=== PATIENT | female | born 1945 | race Caucasian/White ===

== ENCOUNTER 2021-04-07 12:03 | Inpatient (IN) | payer OTHER, MEDICAID ==
[~2021-04-07] VITALS: Ht 162.6 cm; Wt 95.5 kg
--- NOTE | ~2021-04-07 | D ---
[facility] [place] [address] DISCHARGE SUMMARY Name: SANGEETHA HOWARD Room #: 518B-B [facility] M.R.#: [id number] Admission: 04/07/21 Attend Phys: Brady Blancas DO Discharge: 04/11/21 Date of : 43 Report #: [id number] THIS REPORT FOR: cc: FAM - Family physician unknown FAM - Family physician unknown Brady Blancas DO ~ DATE OF SERVICE: 04/11/2021 INPATIENT PSYCHIATRIC DISCHARGE SUMMARY ATTENDING PSYCHIATRIST: Brady Blancas DO RETAIL AGENT: Michael Ferguson MD DISCHARGE DIAGNOSES: Bipolar 1 disorder, most recent episode; depressed, improved; borderline personality traits. MEDICAL COMORBIDITIES: Include obesity, hyperlipidemia, diabetes mellitus, requiring insulin; hypothyroidism, hypertension. The patient is discharging to her home. She does have a part-time in-home caregiver. DISCHARGE MEDICATIONS: Were sent to the [facility] in [place] is as follows: Tramadol 50 mg oral b.i.d. p.r.n. for pain, lamotrigine 300 mg oral at bedtime for mood stabilization and seizure prevention, atorvastatin 1 tablet oral daily for hyperlipidemia, [place]-3 fish oil 1 capsule oral twice daily 1000 mg for hyperlipidemia, levothyroxine 137 mcg oral daily for hypothyroidism, methocarbamol 500 mg oral 3 times a day for muscle relaxation, magnesium oxide 400 mg oral daily for supplementation, vitamin B12 500 mcg oral daily for supplementation, furosemide 20 mg oral tablet daily for hypertension, fenofibrate 160 mg oral daily, omeprazole 1 capsule oral daily 20 mg for GERD, vitamin D3 2000 international units oral daily for supplementation, Requip 1 tablet oral in a.m. and the evening, 2 tablets at bedtime; probiotic 1 tablet oral daily, gabapentin 600 mg oral 3 times a day for neuropathy, Lexapro 5 mg oral daily for depression, insulin glargine 60 units subQ daily at 0900 hours, at least daily blood sugars. The patient uses a walker, 1800-calorie diabetic diet. She was given crisis suicide hotline information. Return to ER for chest pain, fever greater than 101, shortness of breath, increased swelling, edema and trouble breathing. No SI, HI. LABORATORY DATA: Significant laboratories this admission, hematology: White count 6.1, H and H of 14.5 and 43.3, platelet count 179. Chemistries this admission: Sodium 141, potassium 4.0, chloride 105, bicarbonate 26, anion gap 10, BUN 18, creatinine 0.8, estimated GFR 70, average glucose 177. A1c high at 7.8, calcium 9.0, AST 30, ALT 30, alkaline phosphatase 92, total protein 7.1, albumin 3.5, triglycerides 375, total cholesterol 225, LDL 124, HDL 26, which is low. TSH slightly high at 6.544. COVID-19 serology was not detected on the or for this patient. [address] [address] DISCHARGE SUMMARY Name: SANGEETHA HOWARD Room #: 518B[facility]B [facility] M.R.#: [id number] Admission: 04/07/21 Attend Phys: Brady Blancas, DO Discharge: 04/11/21 Date of : 43 Report #: [id number] REASON FOR ADMISSION: A 75-year-old female referred from [facility] after suicidal statements, suicidal ideation with overdose on insulin. She had recent overdose on insulin on 03/24 and 03/25. The patient is in wraparound services with [facility]. HOSPITAL COURSE: The patient was admitted to Geriatric Psychiatry Unit. Regarding her medication regimen, she had been recently started on Prozac, I felt that was not in her best interest. Given the drug interaction problem, probably to resume medication, so I started her on Lexapro 5 mg oral daily. The patient tolerated it throughout the hospitalization well, sleep improved. She interacted and participated in groups. We had hoped to get her in a PHP or IOP program through [facility] in [place]. Unfortunately, they do not have this. Her in-home caregiver company was coming around 20 hours a week; therefore, we are going to increase this to 40 hours a week. We communicated during the hospitalization with her daughter, Erendira, who is familiar with previous incident such as this. She remained supportive. The patient was counseled on coping skills, which she will continue to work on. She did have some obsessional thinking about exposing her grandchildren to COVID, which was not found a definite reality. PHYSICAL EXAMINATION: VITAL SIGNS: Today on day of discharge are as follows: Temperature 36.6, pulse 77, respirations 17, BP 115/63, O2 sat 93%. BMI of 36.1. Weight of 95.41 kilos. MUSCULOSKELETAL: Upright with walker, well dressed. MENTAL STATUS EXAMINATION: Well-developed female, appearing stated age. Attention intact. Concentration was intact. Speech normal in rate, tone. Thought process: Linear and goal directed. Thought content: Focused on the present and discharge. Mood and affect euthymic, okay, congruent, fair range. Memory not formally tested. Insight and judgment fair. Fund of knowledge at least average. Prognosis for this patient is guarded given limited coping skills, history of previous suicidal attempts, gestures. She will need to be assertive about engaging in therapy and activities to improve her chances of success. By: [id number] Brady Blancas, /nt
[2021-04-07] MEDS ORDERED: TRAMADOL 50 MG50 MG PO (16:52)
[2021-04-07] MEDS ORDERED: ACETAMINOPHEN650 M2 PO (16:52)
[2021-04-07] MEDS ORDERED: FLUOXETINE DR90 MG PO (16:53)
[2021-04-07] MEDS ORDERED: LAMICTAL100 MG PO (16:54)
[2021-04-07] MEDS ORDERED: PRAVACHOL 20 MG20 M1 PO (16:54)
[2021-04-07] MEDS ORDERED: VITAMIN B-121000 MC2 SUBLING (16:55)
[2021-04-07] MEDS ORDERED: FISH OIL 1,001000 M3 PO (17:01)
[2021-04-07] MEDS ORDERED: D3 DOTS50 MCG PO (17:02)
[2021-04-07] MEDS ORDERED: LEVOTHYROXINE137 MC1 PO (17:02)
[2021-04-07] MEDS ORDERED: METHOCARBAMOL500 M2 PO (17:03)
[2021-04-07] MEDS ORDERED: MAG-OXIDE400 MG PO (17:04)
[2021-04-07] MEDS ORDERED: REQUIP 0.25 M0.25 M1 PO (17:04)
[2021-04-07] MEDS ORDERED: B-12500 MCG PO (17:06)
[2021-04-07] MEDS ORDERED: CLARITIN10 M3 PO (17:06)
[2021-04-07] MEDS ORDERED: [UNRECOGNIZED DRUG - OTHER] PO (17:06)
[2021-04-07] MEDS ORDERED: GRALISE600 MG PO (17:07)
[2021-04-07] MEDS ORDERED: FUROSEMIDE 20 M20 MG PO (17:07)
[2021-04-07] MEDS ORDERED: LEVEMIR FL100 UNIT/2 SUBQ (17:08)
[2021-04-07] MEDS ORDERED: INSULIN AS100 UNIT/1 SUBQ (17:09)
[2021-04-07] MEDS ORDERED: ADMELOG100 UNIT/1 SUBQ (17:11)
[2021-04-07] MEDS ORDERED: HUMALOG100 UNIT/1 SUBQ (17:11)
[2021-04-07] MEDS ORDERED: FARXIGA5 MG PO (17:14)
[2021-04-07] MEDS ORDERED: TRESIBA FL100 UNIT/1 SUBQ (17:14)
[2021-04-07] MEDS ORDERED: FENOFIBRATE160 MG PO (17:14)
[2021-04-07] MEDS ORDERED: OMEPRAZOLE 20 M20 M1 PO (17:15)
[2021-04-08] MEDS ORDERED: VITAMIN D31250 MCG PO (02:10)
[2021-04-08] MEDS ORDERED: REQUIP 1 MG TABL1 M1 PO ×2 (02:12)
[2021-04-08] MEDS ORDERED: RISPERDAL 1 MG T1 MG PO (02:13)
[2021-04-08] MEDS ORDERED: PROBIOTIC1 EAC7 PO (02:14)
[2021-04-08] MEDS ORDERED: TRAMADOL 50 MG50 MG PO (02:15)
--- NOTE | 2021-04-08 02:30 | NUR ---
04/07/21 0510 PATIENT ADMITTED TO THE UNIT FROM ER VIA WHEELCHAIR. PATIENT IS AAOX4 AND FOLLOWS COMMANDS. AMBULATORY BUT NEEDS A WALKER. DENIES PAIN OR NEEDS AT THIS TIME. STATES THAT SHE HAS BEEN FEELING DEPRESSED AND WANTED TO OD ON HER INSULIN. PATIENT PRESENTS WITHDRAWN AND DEPRESSION. STATES THAT SHE NEEDS SOMETHING FOR PAIN AND ANXIETY. HAS BEEN TREATED AT LEAST TWICE IN THE PAST 6 MONTHS FOR SI. VITAL SIGNS ARE STABLE AND BLOOD GLUCOSE IS 183. NO BREAKDOWN IN SKIN NOTED. ORIENTED PATIENT TO HER ROOM. PT TOLERATES PO MEDICATIONS WITH NO ISSUES. YELLOW SOCKS APPLIED. ID BANDS APPLIED. MRI ASSISTANT KLAIN RODRIGUEZ AT BEDSIDE A FEW MINUTES AFTER PATIENT ARRIVAL. NOTIFIED DR. GARCÍA OF PATIENT ARRIVAL TO UNIT. PATIENT SIGNS VOLUNTARY CONSENTS. WILL CONTINUE TO MONITOR FOR CHANGES IN PATIENT STATUS.
[2021-04-08 06:30] LABS: HEMATOCRIT 43.3 % (37.0-47.0); HEMOGLOBIN 14.5 gm/dL (12.0-15.0); MCH 30.5 pg (26.0-34.0); MCHC 33.5 g/dL (28.0-37.0); MCV 90.9 fL (80.0-100.0); RBC 4.76 mil/uL (4.20-5.00); RDW 14.6 % (10.5-14.5); WBC 6.1 thou/uL (4.0-11.0)
[2021-04-08 06:55] LABS: ALBUMIN 3.5 g/dL (3.4-5.0); ANION GAP 10 mmol/L (7-16); BUN 18 mg/dL (7-18); CHLORIDE 105 mmol/L (98-107); CHOLESTEROL 225 mg/dL (<200); CO2 26 mmol/L (21-32); CREATININE 0.8 mg/dL (0.6-1.0); GLUCOSE 176 mg/dL (74-106); HDL CHOLESTEROL 26 mg/dL (>40); LDL CHOLESTEROL 124 mg/dL (<100); SGOT 30 U/L (15-37); SGPT 30 U/L (30-65); SODIUM 141 mmol/L (136-145); TC:HDL 8.7 Ratio (Not establshd); TOTAL BILIRUBIN 0.6 mg/dL (0.2-1.0); TOTAL PROTEIN 7.1 g/dL (6.4-8.2); TRIGLYCERIDE 375 mg/dL (<150); VLDL 75 mg/dL (<40)
[2021-04-08] MEDS ORDERED: PROZAC 10 MG CA10 MG PO (08:42)
[2021-04-08] MEDS ORDERED: NEURONTIN 300M300 M2 PO ×2 (08:44)
[2021-04-08 08:56] VITALS: BP 126/50
[2021-04-08 09:29] VITALS: BP 126/80
--- NOTE | 2021-04-08 12:38 | NUR ---
RESUMMED CARE FROM OVERNIGHT SHIFT THIS AM, PATIENT ALERT ORIENTED TIMES 3-4 KNEW IT WAS SEPTTEMBER BUT FORGOT THE DAY. PATIENT STATES SHE HAS ACTIVE SI SHE STATES IT IS DUE TO HER HEALTH PROBLEMS. SHE STATES SHE FEELS LIKE A BURDEN TO HER FAMILY. SHE DENIES HI/AH BUT STATES SHE SEES SHADOWS OUT OF THE CORNERS OF HER EYES. PATIENT CALM AFFECT FLAT TAKES MEDICATION WITHOUT INCIDENCE. PATIENTS ABDOMEN SOFT BOWEL SOUNDS PRESENT, PATIENTS LUNGS CLEAR. PATIENT HAS NOT DISPLAYED ANY BEHAVIORS WILL CONTINUE TO MONITOR PATIENT FOR SAFETY AND BEHAVIORS.
--- NOTE | 2021-04-08 14:06 | NUR ---
04-08-2021--Doctor and I met with patient. Patient appeared anxious and as oif something was the matter so I asked her. (As displayed by renee rahman. She stated "I don't think I belong here". I asked her what she meant and she told me she wasn't like these other people. Patient appeared to know what meds she was on and wnhat she wanted to be on. Gathered information with physician for the completion of psychosocial history. Doctor would like to have a family meeting tomorrow. Call to Erendira MORSE ([phone]). Not in. Message left to call me back
[2021-04-08 19:15] VITALS: BP 132/57
[2021-04-08 20:00] VITALS: BP 132/57
[2021-04-08 23:06] LABS: GLYCOHEMOGLOBIN (HGB A1C) 7.8 % (4.8-5.6)
--- NOTE | 2021-04-09 02:02 | NUR ---
PATIENT SAT UP IN DINING ROOM THIS EVENING IN A MARYBEL CHAIR. SHE AMBULATES WITH A WALKER. PATIENT HAD C/O OF BACK AND RIGHT SHOULDER PAIN WHICH IS CHRONIC. TRAMADOL 50MG PO GIVEN WITH HS MEDS. SHE DENIES SI/HI/AVH TONIGHT. SHE STATES SHE IS DEPRESSED BUT DOES FEEL BETTER THAN SHE HAD. PATIENT HAD HS SNACK OF SF COOKIES. SHE TOOK HER MEDS WHOLE WITH WATER. SHE AWOKE AROUND 0045 AND CAME TO NURSE STATION TO SEE THE TIME. SHE SAYS SHE COULDN'T SLEEP. PATIENT DECIDED TO GO BACK TO ROOM AND LAY DOWN AGAIN. BED IN LOW POSITION AND BED ALARM IS ON. ROUTINE ROUNDS TO ASSESS SAFETY AND STATUS OF PATIENT.
[2021-04-09 08:58] VITALS: BP 130/53
--- NOTE | 2021-04-09 10:01 | NUR ---
PATIENT IS ALERT AND ORIENTED X4 WHEN I ASSUMED CARE, PATIENT SITTING IN THE DAY ROOM, CALM AND COOPERATIVE WITH CARE ACTIVE BOWEL SOUND WITH SOFT ABDOMEN, VSS, BREATH SOUND CLEAR, PATIENT TOOK HER MEDICATION WHOLE WITHOUT ANY PROBLEM, SHE AMBULATE WITH A WALKER, NO PAIN REPORTED, PATIENT DENIES SI/HI, NO BEHAVIOR CHANGE
--- NOTE | 2021-04-09 14:09 | NUR ---
04-09-2021--12:00--Phone meeting with Erendira Day (patient's daughter and DPOA) the patient and myself. The Doctor stated he thought it was a good idea to have someone else do the patient's insulin and perhaps even keep it in a lock box in the fridge so patient can't try to OD on it again. DPOA agreed woith this suggestion. He also told her that getting onto the PHP program at [facility] (at least for a couple of weeks) would be a good idea. Patient stated her CM and therapist had been trying to get her to go but she thought it would be too expensive. DPOA stated they would handle it. Doctor called the hospitalist (Dr. Ferguson) to discuss the patient's insulin in an effort to prevent her from having access to it. (Decision on insulin will be on DC plan from the MD. The doctor stated the patient can DC on 04-11-2021. Patient and her DPOA were agreeable to this. I will engage the transportation company and make an appointment for at 13:00.
--- NOTE | 2021-04-09 14:19 | NUR ---
04-09-2021--14:15--Call to [employer] transportation and arranged a 1:00 PM pickup for patient for , 04-11-2021 to take patient back to her home at [address] [facility], in [place], [place]. Transportation arranged and I told the patient that she would be discharging as the doctor had told her on . Patient was happy with this arrangement. She has the numbers for [facility] for her therapist and CM to arrange to start PCP program on Thursday04-15-2021.
--- NOTE | 2021-04-09 14:29 | NUR ---
04-09-2021--13:00--GROUP--Patient had gone to her room after lunch and way lying down. Reminded her that grojp was going to start and she cme out to the [employer] area. We continued the education on anger and where in our bodies we first feel the beginnings of anger. She participated fully and shared ideas and comments.
[2021-04-09 19:40] VITALS: BP 123/51
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
--- NOTE | 2021-04-10 00:17 | NUR ---
ASSUMED CARE ON 04/09/21 @ 1900, SEATED IN A MARYBEL CHAIR IN THE DAY ROOM. COOPERATED WITH ASSESSMENT AND MEDICATIONS. STATES THAT SHE WANTS TO WAIT TO GO TO SLEEP UNTIL 23:30. PROVIDED TRAMADOL 50 FOR BACK PAIN REQUESTED, UPON FOLLOW UP SHE IS SLEEPING IN THE MARYBEL CHAIR. WILL CONTINUE TO MONITOR FOR COMFORT AND SAFETY PER UNIT PROTOCOL.
--- NOTE | 2021-04-10 12:35 | NUR ---
PATIENT IS ALERT AND ORIENTED X4, PATIENT SITTING IN THE COMMON AREA, CALM AND COOPERATIVE WITH CARE, ACTIVE BOWEL SOUND WITH SOFT AND ROUNDED ABDOMEN, LUNGS CLEAR, SKIN INTACT, PATIENT TOOK MEDICATION WHOLE, WENT TO GROUP AND PATICIPATED. PATIENT AMBULATE WITH WALKER, SHE DENIES SI/HI, FALL PRECAUTION IN PLACE
[2021-04-10 19:42] VITALS: BP 119/56
[2021-04-10 19:50] VITALS: BP 119/56
--- NOTE | 2021-04-10 20:18 | NUR ---
ASSUMED CARE ON 04/10/21 @ 1900, A&OX4, REPORTS BACK PAIN AND REQUESTS TRAMADOL, HRRR, LUNGS CTA BILAT, ABD N AND BM TODAY, BUT SMALL SIZE WITH A NORMAL CONSISTENCY. DENIES ANXIETY AND DEPRESSION, DENIES HALLUCINATION, SI/HI. SEATED IN A MARYBEL CHAIR IN HER ROOM, SHE REPORTS BECAUSE PEERS IN THE DAY ROOM WERE NOT WEARING MASKS. WILL CONTINUE TO MONITOR FOR SAFETY AND COMFORT.
[2021-04-11 09:06] VITALS: BP 115/63
--- NOTE | 2021-04-11 09:21 | NUR ---
04-11-2021--09:25--Call to [facility] to talk to patient's case fitter (Mert Aragon--[phone]) whoi states [facility] doesn't have a PHP program for their MH patient's. I advised him she is discharging today at 1:00 and he states he has been trying to get her to agree to go to assisted living and so far she has refused. He states they will continue to attempt to get her to go to [place].
[2021-04-11 10:33] VITALS: BP 115/63
--- NOTE | 2021-04-11 11:50 | NUR ---
RESUMMMED CARE FROM OVERNIGHT SHIFT THIS AM, PATIENT SITTING IN DAY ROOM QUIET. PATIENT ATE BREAKFAST TOOK MEDICATION WITHOUT INCIDENCE; PATIENT DENIES SI/HI/AH/VH AT PRESENT. PATIENTS ABDOMEN SOFT BOWEL SOUNDS PRESENT PATIENTS LUNGS CLEAR. PATIENT IS CALM COOPERATIVE PATIENT IS DISCHARGING TO HOME TODAY. PATIENTS BELONGING PACKED AND DISCHARGE INSTRUCTIONS GIVEN TO PATIENT. WILL CONTINUE TO MONITOR PATIENT FOR SAFETY AND BEHAVIORS.
[2021-04-11] MEDS ORDERED: NEURONTIN600 MG PO (12:21)
[2021-04-11] MEDS ORDERED: LEXAPRO 10 MG T10 MG PO (12:22)
[2021-04-11] MEDS ORDERED: LANTUS SUBQ (12:24)
[2021-04-11 12:38] VITALS: BP 115/63
== END 2021-04-11 13:20 | disposition home or self-care (01) | DRG 885 ==
LOC: SBH 12:03
PROVIDERS: ADMIT Psychiatry & Neurology Psychiatry; ATTEND Psychiatry & Neurology Psychiatry
DX: F31.4 Bipolar disorder, current episode depressed, severe, without psychotic features (principal); T14.91XA Suicide attempt, initial encounter; G89.4 Chronic pain syndrome; F60.3 Borderline personality disorder; E11.9 Type 2 diabetes mellitus without complications; K21.9 Gastro-esophageal reflux disease without esophagitis; M54.9 Dorsalgia, unspecified; E78.5 Hyperlipidemia, unspecified; I10 Essential (primary) hypertension; Z96.659 Presence of unspecified artificial knee joint; F41.1 Generalized anxiety disorder; E03.9 Hypothyroidism, unspecified; E11.40 Type 2 diabetes mellitus with diabetic neuropathy, unspecified; Z20.822 Contact with and (suspected) exposure to COVID-19; G47.33 Obstructive sleep apnea (adult) (pediatric); G25.81 Restless legs syndrome; M19.90 Unspecified osteoarthritis, unspecified site; Z79.899 Other long term (current) drug therapy; Z88.8 Allergy status to other drugs, medicaments and biological substances; Z88.1 Allergy status to other antibiotic agents; Z91.040 Latex allergy status; Z81.8 Family history of other mental and behavioral disorders; Z86.19 Personal history of other infectious and parasitic diseases; Z85.3 Personal history of malignant neoplasm of breast; Z23 Encounter for immunization; X83.8XXA Intentional self-harm by other specified means, initial encounter; Y93.89 Activity, other specified; Y92.89 Other specified places as the place of occurrence of the external cause; Y99.8 Other external cause status
CPT/HCPCS: 10880

== ENCOUNTER 2021-04-07 16:19 | Emergency (ER) | payer OTHER, MEDICAID ==
[~2021-04-07] VITALS: Ht 165.1 cm; Wt 95.7 kg
[2021-04-07] MEDS ORDERED: TRAMADOL 50 MG50 MG PO (16:52)
[2021-04-07] MEDS ORDERED: ACETAMINOPHEN650 M2 PO (16:52)
[2021-04-07] MEDS ORDERED: FLUOXETINE DR90 MG PO (16:53)
[2021-04-07] MEDS ORDERED: LAMICTAL100 MG PO (16:54)
[2021-04-07] MEDS ORDERED: PRAVACHOL 20 MG20 M1 PO (16:54)
[2021-04-07] MEDS ORDERED: VITAMIN B-121000 MC2 SUBLING (16:55)
[2021-04-07] MEDS ORDERED: FISH OIL 1,001000 M3 PO (17:01)
[2021-04-07] MEDS ORDERED: D3 DOTS50 MCG PO (17:02)
[2021-04-07] MEDS ORDERED: LEVOTHYROXINE137 MC1 PO (17:02)
[2021-04-07] MEDS ORDERED: METHOCARBAMOL500 M2 PO (17:03)
[2021-04-07] MEDS ORDERED: MAG-OXIDE400 MG PO (17:04)
[2021-04-07] MEDS ORDERED: REQUIP 0.25 M0.25 M1 PO (17:04)
[2021-04-07] MEDS ORDERED: B-12500 MCG PO (17:06)
[2021-04-07] MEDS ORDERED: [UNRECOGNIZED DRUG - OTHER] PO (17:06)
[2021-04-07] MEDS ORDERED: CLARITIN10 M3 PO (17:06)
[2021-04-07] MEDS ORDERED: FUROSEMIDE 20 M20 MG PO (17:07)
[2021-04-07] MEDS ORDERED: GRALISE600 MG PO (17:07)
[2021-04-07] MEDS ORDERED: LEVEMIR FL100 UNIT/2 SUBQ (17:08)
[2021-04-07] MEDS ORDERED: INSULIN AS100 UNIT/1 SUBQ (17:09)
[2021-04-07] MEDS ORDERED: ADMELOG100 UNIT/1 SUBQ (17:11)
[2021-04-07] MEDS ORDERED: HUMALOG100 UNIT/1 SUBQ (17:11)
[2021-04-07] MEDS ORDERED: FENOFIBRATE160 MG PO (17:14)
[2021-04-07] MEDS ORDERED: FARXIGA5 MG PO (17:14)
[2021-04-07] MEDS ORDERED: TRESIBA FL100 UNIT/1 SUBQ (17:14)
[2021-04-07] MEDS ORDERED: OMEPRAZOLE 20 M20 M1 PO (17:15)
[2021-04-07 22:45] VITALS: BP 155/73
[2021-04-08] MEDS ORDERED: VITAMIN D31250 MCG PO (02:10)
[2021-04-08] MEDS ORDERED: REQUIP 1 MG TABL1 M1 PO ×2 (02:12)
[2021-04-08] MEDS ORDERED: RISPERDAL 1 MG T1 MG PO (02:13)
[2021-04-08] MEDS ORDERED: PROBIOTIC1 EAC7 PO (02:14)
[2021-04-08] MEDS ORDERED: TRAMADOL 50 MG50 MG PO (02:15)
[2021-04-08] MEDS ORDERED: PROZAC 10 MG CA10 MG PO (08:42)
[2021-04-08] MEDS ORDERED: NEURONTIN 300M300 M2 PO ×2 (08:44)
== END 2021-04-07 22:56 ==
LOC: ER 16:19
PROVIDERS: Emergency Medicine
DX: R45.851 Suicidal ideations (principal); Z20.822 Contact with and (suspected) exposure to COVID-19; Z91.040 Latex allergy status; Z91.09 Other allergy status, other than to drugs and biological substances; Z88.8 Allergy status to other drugs, medicaments and biological substances; Z88.6 Allergy status to analgesic agent; Z79.899 Other long term (current) drug therapy; Z79.82 Long term (current) use of aspirin